=== PATIENT | female | born 1960 | race Caucasian/White ===

== ENCOUNTER 2018-03-12 11:01 | Emergency (ER) | payer MEDICAID ==
[~2018-03-12] VITALS: Ht 167.6 cm; Wt 68.0 kg
[~2018-03-12 11:01] MED LIST: LISI10TA6; VENL150C2
[2018-03-12 11:19] VITALS: BP 133/91
[2018-03-12 13:07] LABS: Urine Bacteria NONE SEEN /hpf (None Seen); Urine Blood Negative /uL (Negative); Urine Specific Gravity 1.009 (1.001-1.035); Urine WBC 1 /hpf (0 - 5)
[2018-03-12] MEDS ORDERED: LIDOCAINE 2% (LOCAL ANESTH.) PF 5ml SDV ONE (13:09)
== END 2018-03-12 14:27 | disposition left against medical advice (07) ==
LOC: ER 11:01
DX: M54.5 Low back pain (principal); Z53.21 Procedure and treatment not carried out due to patient leaving prior to being seen by health care provider
CPT/HCPCS: 81001; 93005; J2001